=== PATIENT | male | born 1955 | race Caucasian/White ===

== ENCOUNTER → 2019-12-01 | Outpatient (CLI) | payer BC | LOC: CAT 11-18 11:41 | DX: Z13.6 Encounter for screening for cardiovascular disorders (principal); C34.11 Malignant neoplasm of upper lobe, right bronchus or lung; J44.9 Chronic obstructive pulmonary disease, unspecified; J98.4 Other disorders of lung; Z98.890 Other specified postprocedural states ==

== ENCOUNTER → 2019-12-08 | Outpatient (CLI) | payer BC ==
--- NOTE | 2019-12-08 11:51 | 2DMMODE ---
[facility] [place] [address] 2 D/M-MODE ECHOCARDIOGRAM Name: ANTONIA GRAY Room #: REG [facility]#: [id number] Admission: 12/08/19 Attend Phys: Mook Wylie MD Discharge: Date of : 55 Report #: [id number] THIS REPORT FOR: cc: Jose England MD, Christopher B. MD Park, Jin S. MD ~ THIS REPORT FOR: //name// APPROVED REPORT Study performed: 12/08/2019 11:15:24 EXAM: Comprehensive 2D, Doppler, and color-flow Echocardiogram Patient Location: Out-Patient Status: routine BSA: 2.18 HR: 69 bpm BP: 138/92 mmHg Rhythm: NSR Other Information Study Quality: Good Indications Short of breath. Hx: COPD, lung cancer, HTN, HLP. 2D Dimensions RVDd: 36.85 mm IVSd: 11.41 (7-11mm) LVOT Diam: 23.83 (18-24mm) LVDd: 51.34 mm PWd: 7.97 (7-11mm) Ascending Ao: 36.64 (22-36mm) LVDs: 39.28 (25-40mm) Aortic Root: 39.45 mm Volumes Left Atrial Volume (Systole) Single Plane 4CH: 46.57 mL Single Plane 2CH: 66.86 mL LA ESV Index: 29.00 mL/m2 Aortic Valve AoV Peak Jono.: 1.26 m/s AO Peak Gr.: 6.33 mmHg LVOT Max P.30 mmHg LVOT Max V: 0.76 m/s [facility] [address] [place] [address] 2 D/M-MODE ECHOCARDIOGRAM Name: ANTONIA GRAY Room #: REG [facility]#: [id number] Admission: 12/08/19 Attend Phys: Sarai Bonilla Discharge: Date of : 55 Report #: [id number] Vmax: 2.69 cm2 Mitral Valve E/A Ratio: 0.8 MV Decel. Time: 220.63 ms MV E Max Jono.: 0.59 m/s MV A Jono.: 0.76 m/s MV PHT: 63.98 ms IVRT: 101.50 ms Pulmonary Valve PV Peak Jono.: 1.08 m/s PV Peak Gr.: 4.64 mmHg Pulmonary Vein P Vein S: 0.69 m/s P Vein A: 0.35 m/s P Vein D: 0.51 m/s P Vein A Dur.: 110.7 msec P Vein S/D Ratio: 1.35 Tricuspid Valve TR Peak Jono.: 2.48 m/s RAP Estimate: 5.00 mmHg TR Peak Gr.: 25.00 mmHg PA Pressure: 30.00 mmHg Left Ventricle The left ventricle is normal size. There is normal LV segmental wall motion. There is normal left ventricular wall thickness. Left ventricular systolic function is normal. LVEF is 55%. Mild diastolic dysfunction is present (impaired relaxation pattern). Right Ventricle The right ventricle is normal size. The right ventricular systolic function is normal. Atria The left atrium size is normal. The right atrium size is normal. Aortic Valve The aortic valve is normal in structure. No aortic regurgitation is present. There is no aortic valvular stenosis. Mitral Valve The mitral valve is normal in structure. Trace mitral regurgitation. No evidence of mitral valve stenosis. Tricuspid Valve [facility] [address] [place] [address] 2 D/M-MODE ECHOCARDIOGRAM Name: ANTONIA GRAY Rafael Room #: REG [facility]#: [id number] Admission: 12/08/19 Attend Phys: Sarai Bonilla Discharge: Date of : 55 Report #: [id number] The tricuspid valve is normal in structure. Trace tricuspid regurgitation. Estimated PAP is 30mmHg. Pulmonic Valve The pulmonary valve is normal in structure. Mild pulmonic regurgitation. Great Vessels The aortic root is normal in size. The ascending aorta is normal in size. IVC is normal in size and collapses >50% with inspiration. Pericardium There is no pericardial effusion. <Conclusion> The left ventricle is normal size. There is normal left ventricular wall thickness. Left ventricular systolic function is normal. Mild diastolic dysfunction is present (impaired relaxation pattern). The right ventricle is normal size. The left atrium size is normal. The aortic valve is normal in structure. Trace mitral regurgitation. Trace tricuspid regurgitation. Estimated PAP is 30mmHg. <ELECTRONICALLY SIGNED> By: Deshawn Grijalva MD 12/08/19 1150 1150 1150 Deshawn Grijalva MD /INF
== END ==
LOC: CV 10:56
DX: I37.1 Nonrheumatic pulmonary valve insufficiency (principal); C34.11 Malignant neoplasm of upper lobe, right bronchus or lung; J44.9 Chronic obstructive pulmonary disease, unspecified; E78.5 Hyperlipidemia, unspecified; I10 Essential (primary) hypertension

== ENCOUNTER → 2020-11-28 | Outpatient (CLI) | payer OTHER | LOC: CAT 10:09 | PROVIDERS: ATTEND Pediatrics | DX: Z12.2 Encounter for screening for malignant neoplasm of respiratory organs (principal); I25.10 Atherosclerotic heart disease of native coronary artery without angina pectoris; Z87.891 Personal history of nicotine dependence ==

== ENCOUNTER 2021-04-30 07:20 | Observation (INO) | payer OTHER ==
[~2021-04-30] VITALS: Ht 180.3 cm; Wt 96.2 kg
[~2021-04-30 07:20] MED LIST: BISOPROLOL-HCT1 EAC2 PO; FIBER500 MG PO; OMEPRAZOLE 20 M20 M1 PO; POTASSIUM99 M1 PO; PRINIVIL20 MG PO; SIMVASTATIN40 MG PO; VITAMIN C500 M1 PO; WIXELA 250-501 EACH INH
[2021-04-30 08:30] VITALS: BP 146/72
[2021-04-30 08:59] LABS: CALCIUM 9.2 mg/dL (8.5-10.1); CREATININE 1.5 mg/dL (0.7-1.3); POTASSIUM 4.8 mmol/L (3.5-5.1)
--- NOTE | 2021-04-30 09:12 | EKG ---
[address] [address] ELECTROCARDIOGRAM REPORT Name: ANTONIA GRAY Room #: 150-3 [facility]#: [id number] Admission: 04/30/21 Attend Phys: Kranthi Melendez MD Discharge: Date of : 55 Report #: [id number] [facility] Test Date: 2021-04-30 Test Time: 08:03:59 Pat Name: ANTONIA GRAY Department: Room: 150 3 Gender: M Financial Recording Clerk: TREVOR : 1955 Requested By: Anika Orourke Order Number: [id number] : Abel Paula Measurements Intervals [place] Rate: 53 P: 42 FL: 187 QRS: -5 QRSD: 104 T: 23 QT: 430 QTc: 404 Interpretive Statements Sinus rhythm Compared to ECG 11/06/2008 08:26:22 Sinus bradycardia no longer present Electronically Signed On 04-30-2021 9:11:57 CDT by Abel Paula [email or web address] <ELECTRONICALLY SIGNED> By: Abel Paula MD, [facility] 04/30/2111 08 2 Abel Paula MD, FACC /EPI
--- NOTE | 2021-04-30 15:30 | NUR ---
ASSUMED CARE OF PT FROM PACU AT 1410 THIS AFTERNOON. PT WAS ADMITTED FOR OBSERVATION AFTER MICRO HERNIA REPAIR. PT HAS 8 LAP SITES WITH DERMABOND AND COVERED WITH BAND AIDS. PT IS O/OX4, SKIN INTACT W/O TENTING. CR<3SECX4, ABD DISTENDED AND TENDER NEAR THE LAP SITES. PT IS AMBULATORY BUT WAS EDUCATED NOT TO GET UP WITHOUT CALLING FOR ASSISTANCE FIRST. IV IN RIGHT HAND WITH D5 1/2NS WITH 20mEq k+ AT 80ML/HR. ASSESSMENT FINDINGS CHARTED AND OTHERWISE UNREMARKABLE. CALL LIGHT AND OTHER NEEDS ARE WITHIN REACH OF PT. MEDS AND TX GIVEN NEEDED AND SCHEDULED.
[2021-04-30 18:57] VITALS: BP 101/68
[2021-05-01 04:45] VITALS: BP 93/54
[2021-05-01 07:41] VITALS: BP 114/77
--- NOTE | 2021-05-01 10:55 | NUR ---
Assumed care of pt at 0700. Pt a&ox4. Denies pain. Dressings c/d/i. IVF infusing. No concerns at this time. Call light within reach. Will continue to monitor.
--- NOTE | 2021-05-01 13:47 | NUR ---
ASSESSMENT: CM REVIEWED CHART AND SPOKE WITH PATIENT AT THE BEDSIDE. PT IS ALERT AND ORIENTED X4. PT REPORTS THAT HE LIVES IN A HOUSE ALONE. PT IS S/P HERNIA REPAIR. PT REPORTS THAT HE HAS NO HX OF HH OR SNF. PT REPORTS THAT HE IS FULLY INDEPENDENT WITH ADLS AND AMBULATION. CM DISSCUSSED ROLE AND PT STATES HE WILL HAVE NO NEEDS FROM CM PRIOR TO DISCHARGE.
[2021-05-01] MEDS ORDERED: PERCOCET PO (14:14)
[2021-05-01] MEDS ORDERED: DIAZEPAM 5 MG5 M1 PO (14:15)
[2021-05-01 15:19] VITALS: BP 114/77
--- NOTE | 2021-05-02 10:37 | O ---
[facility] [place] [address] OPERATIVE REPORT Name: ANTONIA GRAY [id number] Ad[facility]: 04/30/21 Attend Phys: Kranthi Melendez MD Discharge: 05/01/21 Date of : 55 Report #: [id number] THIS REPORT FOR: cc: Jose England MD, Christopher B. MD Chu, Peter Y. MD ~ DOC #: [id number] Kranthi Melendez MD PREOPERATIVE DIAGNOSIS: Ventral hernia with incarcerated fat. POSTOPERATIVE DIAGNOSIS: Ventral hernia with incarcerated omentum. PROCEDURE PERFORMED: Laparoscopic repair of ventral hernia with reduction of incarcerated omentum. Mesh used. ANESTHESIA: General anesthesia. SURGEON: Kranthi Melendez MD. COMPLICATIONS: None. ESTIMATED BLOOD LOSS: 5 mL DESCRIPTION OF PROCEDURE: With the patient under general anesthesia, abdomen was prepped and draped in sterile fashion. Timeout was performed. A 0.25% Marcaine was placed in the abdominal wall, the right upper quadrant. A 2.5 cm incision was made. The anterior fascia was identified. The anterior fascia was incised transversely, 0 Vicryl suture placed on the fascial edges for retraction. Abdominal rectus muscle was divided. The posterior fascia and the peritoneum was grasped. Hemostat opened under visualization. A 0 Vicryl suture placed on the fascial edges for retraction. Free peritoneal cavity was identified. An 11 mm balloon trocar was placed. Balloon was inflated seating the trocar in place. Under visualization, two 5 mm trocars were then placed in the right lateral abdomen, 1 in the upper mid part of the abdomen and the other 1 in the right lower abdomen. These were placed lateral to the inferior epigastric artery. The incarcerated hernia had quite a large amount of omentum with it. Few areas that were scarred was cauterized and divided that way. The omentum was reduced. A pretty significant size omentum was brought back in. The hernia defect was then identified about 2.5 cm oval shape. Hemostasis was obtained with cautery on the omental area. A 4 inch x 6 inch Ventralight with echo and ST was used. I trimmed a little bit off of the 6-inch direction. The balloon trocar was then removed and this was placed under visualization into the abdominal wall. The balloon trocar was then replaced. The mesh was opened up. The balloon tubing was brought out through the central part of the fascial defect. Balloon was inflated. This is the echo part of the mesh. With the [facility] [address] [place] [address] OPERATIVE REPORT Name: ISAACANTONIA Rafael Room #: 443-P [facility] Lexie Grubbs#: [id number] Admission: 04/30/21 Attend Phys: Kranthi Melendez MD Discharge: 05/01/21 Date of : 55 Report #: [id number] balloon inflated, the mesh was able to be pressed up against the wall and SorbaFix was then used to tack the mesh in place. The balloon was removed through the 11 mm trocar after it was no longer needed. Further SorbaFix was placed more internal part of the mesh. The mesh is nicely opened up. Transfascial suture of CV-2 China-Angel was used. This was placed at 12, 3, 6, 9 o'clock position. The suture retrieval was used to assist the transfascial suture placement. The suture was brought out through the wall. Then, the other end was brought out through the wall and the mesh. These sutures were tied down. Sutures were then cut and left in the subcutaneous. Suture was cut leaving the knot in the subcutaneous. Hemostasis obtained easily. CO2 was evacuated, trocars were removed. The cutdown site of the posterior fascia was closed with figure of eight 0 PDS x 2. Anterior fascia was closed with 0 PDS figure of eight x 2. Irrigation was performed. The two 5 mm and the 11 mm cutdown site was closed with 5-0 PDS in subcuticular fashion. Dermabond was applied over all the small transverse fascial incision site plus the trocar site. The transfascial sutures were placed through a very small opening in the skin about 2 mm. Band-Aids applied. The patient was taken to recovery room, tolerated the procedure well. Kranthi Melendez MD PYC/BRIANNA <ELECTRONICALLY SIGNED> By: Kranthi Melendez MD 05/02/21 1037 1210 1518 Kranthi Melendez MD /shayne
== END 2021-05-01 15:30 | disposition home or self-care (01) ==
LOC: OR 07:20 → TBA 07:20 → OR 10:54 → 4S 13:56 → OR 13:57 → 4S 13:57 → OR 17:28 → 4S 05-01 15:30
PROVIDERS: Student in an Organized Health Care Education/Training Program; ADMIT Surgery; ATTEND Surgery
DX: K43.6 Other and unspecified ventral hernia with obstruction, without gangrene (principal); I10 Essential (primary) hypertension; F17.200 Nicotine dependence, unspecified, uncomplicated; Z79.899 Other long term (current) drug therapy
CPT/HCPCS: 50010; 50101; 50386; 50455; 50555; 50687; 50979; 52265; 53065; 53307; 54022; 54118; 56462; 56525; 56526; 56530; 57092; 58574; 62110; 62900; 70005

== ENCOUNTER → 2021-12-03 | Outpatient (CLI) | payer OTHER ==
[~2021-12-03] MED LIST changes: +DIAZEPAM 5 MG5 M1 PO; +PERCOCET PO
== END ==
LOC: CAT 11:46
PROVIDERS: ATTEND Pediatrics
DX: Z12.2 Encounter for screening for malignant neoplasm of respiratory organs (principal); I25.10 Atherosclerotic heart disease of native coronary artery without angina pectoris; R91.8 Other nonspecific abnormal finding of lung field; M25.78 Osteophyte, vertebrae; Z87.891 Personal history of nicotine dependence